=== PATIENT | male | born 1975 | race Caucasian/White ===

== ENCOUNTER 2016-07-09 19:50 | Emergency (ER) | payer MEDICAID ==
[~2016-07-09] VITALS: Ht 180.3 cm; Wt 93.0 kg
[2016-07-09] MEDS ORDERED: METO50TA5 PO (20:16)
[2016-07-09] MEDS ORDERED: HYDR25TA PO (20:17)
[2016-07-09] MEDS ORDERED: IBUPROFEN 600MG TABLET PO STA (21:08)
[2016-07-09 21:26] LABS: BASOPHILS % 0.3 % (0.0-2.0); EOSINOPHILS % 1.7 % (0.0-5.0); HEMATOCRIT. 43.8 % (42.0-52.0); HEMOGLOBIN. 14.6 g/dL (14.0-18.0); LYMPHOCYTES % 23.9 % (20.0-50.0); MEAN CORPUSCULAR HEMOGLOBIN 28.3 pg (28.0-32.0); MEAN CORPUSCULAR VOLUME 85.3 fL (80.0-94.0); MEAN PLATELET VOLUME 8.2 fl (7.4-10.4); MONOCYTES % 7.5 % (2.0-8.0); NEUTROPHILS % 66.6 % (40.0-76.0); PLATELET 248 x1000/uL (130-400); RED BLOOD CELL COUNT 5.13 mill/uL (4.7-6.1)
[2016-07-09 21:28] LABS: CHLORIDE 107 mEq/L (98-107)
[2016-07-09 21:37] LABS: CARBON DIOXIDE 25 mEq/L (21-32)
[2016-07-09] MEDS ORDERED: LORAZEPAM 0.5MG TABLET PO ONE (22:15)
[2016-07-09] MEDS ORDERED: HYDROCHLOROTHIAZIDE 25MG TABLET PO ONE (22:15)
[2016-07-09 22:19] VITALS: BP 153/93
== END 2016-07-09 22:48 | disposition home or self-care (01) ==
LOC: ER 19:50
DX: R07.89 Other chest pain (principal); I10 Essential (primary) hypertension; F17.200 Nicotine dependence, unspecified, uncomplicated
CPT/HCPCS: 36415; 71010; 80053; 85025; 93005; 99285; Z7610

== ENCOUNTER 2018-04-11 14:56 | Emergency (ER) | payer MEDICAID ==
[~2018-04-11] VITALS: Ht 177.8 cm; Wt 97.0 kg
[~2018-04-11 14:56] MED LIST: HYDR25TA PO; METO-539 PO
[2018-04-11 16:55] VITALS: BP 146/113
[2018-04-11] MEDS ORDERED: FOLIC ACID 1 MG, THIAMINE HCL 100 MG, MVI, ADULT NO.1 10 ML in DEXTROSE 5% WATER 1,000 ML IV ONE ×4 (17:15)
[2018-04-11] MEDS ORDERED: ENALAPRIL 2.5MG/2ML VIAL 2ML IV ONE (17:15)
[2018-04-11 17:31] LABS: BASOPHILS % 0.3 % (0.0-2.0); EOSINOPHILS % 0.7 % (0.0-5.0); HEMATOCRIT. 46.2 % (42.0-52.0); HEMOGLOBIN. 15.6 g/dL (14.0-18.0); LYMPHOCYTES % 14.5 % (20.0-50.0); MEAN CORPUSCULAR HEMOGLOBIN 28.8 pg (28.0-32.0); MEAN CORPUSCULAR VOLUME 85.5 fL (80.0-94.0); MEAN PLATELET VOLUME 7.6 fl (7.4-10.4); MONOCYTES % 7.5 % (2.0-8.0); PLATELET 318 x1000/uL (130-400); RED BLOOD CELL COUNT 5.41 mill/uL (4.7-6.1)
[2018-04-11 17:34] LABS: CLARITY URINE CLEAR (CLEAR); COLOR URINE YELLOW (YELLOW); KETONES URINE NEGATIVE (NEGATIVE); LEUKOCYTE ESTERASE URINE NEGATIVE (NEGATIVE); NITRITE URINE NEGATIVE (NEGATIVE); OCCULT BLOOD URINE NEGATIVE (NEGATIVE); PROTEIN URINE NEGATIVE (NEGATIVE); SPECIFIC GRAVITY URINE 1.014 (1.005-1.030); UROBILINOGEN URINE 0.2 E.U./dL (0.2-1.0)
[2018-04-11 17:46] LABS: CHLORIDE 104 mEq/L (98-107)
[2018-04-11 17:50] LABS: *BENZODIAZEPINES SCREEN URINE NEGATIVE (NEGATIVE); *COCAINE SCREEN URINE PRESUMTIVE POSITIVE (NEGATIVE)
[2018-04-11 17:51] LABS: ETHANOL BLOOD < 10 mg/dL
[2018-04-11 17:51] LABS: *AMPHETAMINES SCREEN URINE PRESUMTIVE POSITIVE (NEGATIVE)
[2018-04-11 17:53] LABS: METHADONE URINE SCREEN NEGATIVE (NEGATIVE); OPIATES URINE SCREEN NEGATIVE (NEGATIVE)
[2018-04-11 17:54] LABS: PHENCYCLIDINE URINE SCREEN NEGATIVE (NEGATIVE)
[2018-04-11 17:55] LABS: CANNABINOID URINE SCREEN NEGATIVE (NEGATIVE)
[2018-04-11 17:59] LABS: *BARBITURATES SCREEN URINE NEGATIVE (NEGATIVE)
== END 2018-04-11 18:51 | disposition home or self-care (01) ==
LOC: ER 14:56
DX: R51 Headache (principal); R00.2 Palpitations; I10 Essential (primary) hypertension; F15.10 Other stimulant abuse, uncomplicated; F17.200 Nicotine dependence, unspecified, uncomplicated; F14.10 Cocaine abuse, uncomplicated; Z87.440 Personal history of urinary (tract) infections; Z88.1 Allergy status to other antibiotic agents
CPT/HCPCS: 36415; 70450; 71045; 80053; 80305; 80320; 81003; 83735; 83880; 84443; 84484; 85025; 93005; 99284; J3411; J3490; J7070; G0480

== ENCOUNTER 2018-05-29 12:55 | Emergency (ER) | payer MEDICAID ==
[~2018-05-29] VITALS: Ht 177.8 cm; Wt 95.0 kg
[2018-05-29 16:15] VITALS: BP 146/91
== END 2018-05-29 16:23 | disposition home or self-care (01) ==
LOC: ER 13:14
DX: B35.6 Tinea cruris (principal); I10 Essential (primary) hypertension; F17.210 Nicotine dependence, cigarettes, uncomplicated; Z98.1 Arthrodesis status; Z88.1 Allergy status to other antibiotic agents
CPT/HCPCS: 82962; 99283

== ENCOUNTER 2019-06-25 19:51 | Inpatient (IN) | payer BC, MEDICAID ==
[~2019-06-25] VITALS: Ht 172.7 cm; Wt 96.8 kg
[2019-06-25 20:00] VITALS: BP 172/100
[2019-06-25] MEDS ORDERED: NITROGLYCERIN 0.4MG TABLET SL SL NR (20:45)
[2019-06-25] MEDS ORDERED: SODIUM CHLORIDE 0.9% 1,000 ML IV ONE (21:00)
[2019-06-25 21:13] LABS: BASOPHILS % 0.4 % (0.0-2.0); EOSINOPHILS % 2.5 % (0.0-5.0); HEMATOCRIT. 42.2 % (42.0-52.0); HEMOGLOBIN. 14.8 g/dL (14.0-18.0); LYMPHOCYTES % 17.4 % (20.0-50.0); MEAN CORPUSCULAR HEMOGLOBIN 29.6 pg (28.0-32.0); MEAN CORPUSCULAR VOLUME 84.2 fL (80.0-94.0); MEAN PLATELET VOLUME 8.4 fl (7.4-10.4); MONOCYTES % 7.8 % (2.0-8.0); NEUTROPHILS % 71.9 % (40.0-76.0); PLATELET 243 x1000/uL (130-400); RED BLOOD CELL COUNT 5.01 mill/uL (4.7-6.1)
[2019-06-25 21:19] LABS: CHLORIDE 103 mEq/L (98-107)
[2019-06-25] MEDS ORDERED: ACETAMINOPHEN 325MG TABLET PO ONE (22:00)
[2019-06-25] MEDS ORDERED: IOHEXOL-350 100 ML BOTTLE ONE (23:49)
[2019-06-26] MEDS ORDERED: LABETALOL 5MG/ML SYR 20 MG/4 ML SYRINGE IV ONE (00:15)
[2019-06-26 06:27] LABS: HEMATOCRIT. 39.6 % (42.0-52.0); HEMOGLOBIN. 13.6 g/dL (14.0-18.0); MEAN CORPUSCULAR HEMOGLOBIN 29.1 pg (28.0-32.0); MEAN CORPUSCULAR VOLUME 84.5 fL (80.0-94.0); MEAN PLATELET VOLUME 7.9 fl (7.4-10.4); PLATELET 204 x1000/uL (130-400); RED BLOOD CELL COUNT 4.69 mill/uL (4.7-6.1); RED CELL DISTRIBUTION WIDTH 13.2 % (11.6-14.6)
[2019-06-26] MEDS ORDERED: MORPHINE SULFATE 2 MG/ML CPJ (NOT FOR IM USE) IV SCH (06:30)
[2019-06-26 06:32] LABS: CHLORIDE 107 mEq/L (98-107)
[2019-06-26] MEDS ORDERED: ACETAMINOPHEN 325MG TABLET PO PRN ×2 (07:00)
[2019-06-26] MEDS ORDERED: ONDANSETRON HCL 4MG/2ML INJ IV PRN (07:00)
[2019-06-26] MEDS ORDERED: GUAIFENESIN 200MG/10ML SUGAR FREE UDC PO PRN (07:00)
[2019-06-26] MEDS ORDERED: ACETAMINOPHEN 650MG/20.3ML UDC GT PRN ×2 (07:00)
[2019-06-26] MEDS ORDERED: MAGNESIUM/ALUMINUM HYDROXIDE/SIMETHICONE 30ML UDC PO PRN (07:00)
[2019-06-26] MEDS ORDERED: DOCUSATE SODIUM 100MG CAPSULE PO PRN (07:00)
[2019-06-26] MEDS ORDERED: AMLODIPINE 10MG TABLET PO SCH ×2 (07:00→09:00)
[2019-06-26] MEDS ORDERED: ENOXAPARIN 40MG/0.4ML SYR SUBCUT SCH (07:30)
[2019-06-26 08:37] LABS: PLATELET ESTIMATE NORMAL
[2019-06-26] MEDS ORDERED: DEXTROSE 50% WATER 50ML SYRINGE IV PRN (08:45)
[2019-06-26] MEDS: BLOOD SUGAR DIAGNOSTIC STRIP TEST SCH ×3 (09:00→21:39)
[2019-06-26] MEDS ORDERED: METOPROLOL TARTRATE 25MG TABLET PO SCH (09:16)
[2019-06-26] MEDS: CLONIDINE 0.1MG TABLET PO PRN (12:22)
[2019-06-26] MEDS: INSULIN LISPRO 100 UNITS/ML SUBCUT SCH ×2 (14:09→21:45)
[2019-06-26 14:55] LABS: CREATINE KINASE 74 IU/L (39-308)
[2019-06-26 14:56] LABS: CREATINE KINASE MB FRACTION < 1.0 ng/mL (0.5-3.6)
[2019-06-26] MEDS ORDERED: CARVEDILOL 6.25 MG TABLET PO SCH ×2 (16:32→17:00)
[2019-06-26 20:00] VITALS: BP 172/100
[2019-06-26] MEDS ORDERED: ATORVASTATIN CALCIUM 40MG TABLET PO SCH (21:00)
[2019-06-26] MEDS: ENOXAPARIN 30MG/0.3ML SYR SUBCUT SCH (21:37)
[2019-06-26] MEDS: CARVEDILOL 6.25 MG TABLET PO SCH (21:47)
[2019-06-27] VITALS: BP 136/86
[2019-06-27 00:02] LABS: CREATINE KINASE 75 IU/L (39-308); CREATINE KINASE MB FRACTION < 1.0 ng/mL (0.5-3.6)
[2019-06-27 04:00] VITALS: BP 138/92
[2019-06-27] MEDS: CLONIDINE 0.1MG TABLET PO PRN (05:10)
[2019-06-27] MEDS: BLOOD SUGAR DIAGNOSTIC STRIP TEST SCH ×3 (06:30→17:23)
[2019-06-27] MEDS: INSULIN LISPRO 100 UNITS/ML SUBCUT SCH ×3 (06:33→17:26)
[2019-06-27 07:30] LABS: BASOPHILS % 0.6 % (0.0-2.0); EOSINOPHILS % 4.6 % (0.0-5.0); HEMOGLOBIN. 13.7 g/dL (14.0-18.0); LYMPHOCYTES % 22.9 % (20.0-50.0); MEAN CORPUSCULAR HEMOGLOBIN 28.9 pg (28.0-32.0); MEAN CORPUSCULAR VOLUME 84.6 fL (80.0-94.0); MEAN PLATELET VOLUME 8.6 fl (7.4-10.4); MONOCYTES % 8.6 % (2.0-8.0); NEUTROPHILS % 63.3 % (40.0-76.0); PLATELET 206 x1000/uL (130-400); RED BLOOD CELL COUNT 4.73 mill/uL (4.7-6.1); RED CELL DISTRIBUTION WIDTH 12.8 % (11.6-14.6)
[2019-06-27 07:45] LABS: CHLORIDE 107 mEq/L (98-107)
[2019-06-27 07:57] LABS: HDL CHOLESTEROL 38 mg/dL (40-59)
[2019-06-27 07:58] LABS: LDL CHOLESTEROL 115 mg/dL (5-100)
[2019-06-27 08:00] VITALS: BP 145/88
[2019-06-27] MEDS ORDERED: REGADENOSON 0.4 MG/5 ML IV ONE ×2 (08:00→12:12)
[2019-06-27] MEDS ORDERED: AMLODIPINE 10MG TABLET PO SCH (09:00)
[2019-06-27] MEDS ORDERED: ASPIRIN 81MG TABLET PO SCH (09:00)
[2019-06-27] MEDS: CARVEDILOL 6.25 MG TABLET PO SCH (10:30)
[2019-06-27] MEDS: ENOXAPARIN 30MG/0.3ML SYR SUBCUT SCH (10:31)
[2019-06-27] MEDS ORDERED: COR6 PO (12:28)
[2019-06-27] MEDS ORDERED: LIP40 PO (12:28)
[2019-06-27] MEDS ORDERED: AMLO10TA80 PO (12:28)
[2019-06-27 16:00] VITALS: BP 136/88
[2019-06-27 20:00] VITALS: BP 150/89
== END 2019-06-27 20:55 | disposition home or self-care (01) | DRG 313 ==
LOC: ER 19:51 → 5WST 23:48 → ENRESERV 06-26 17:06
PROVIDERS: ADMIT Family Medicine; ATTEND Family Medicine
DX: R07.89 Other chest pain (principal); D64.9 Anemia, unspecified; E11.9 Type 2 diabetes mellitus without complications; E78.5 Hyperlipidemia, unspecified; F17.200 Nicotine dependence, unspecified, uncomplicated; I10 Essential (primary) hypertension; I25.9 Chronic ischemic heart disease, unspecified; E66.9 Obesity, unspecified; Z88.1 Allergy status to other antibiotic agents; Z79.899 Other long term (current) drug therapy; Z82.49 Family history of ischemic heart disease and other diseases of the circulatory system; Z72.89 Other problems related to lifestyle; Z71.6 Tobacco abuse counseling; Z68.32 Body mass index [BMI] 32.0-32.9, adult; Z87.440 Personal history of urinary (tract) infections
CPT/HCPCS: 36415; 71045; 71275; 78452; 80048; 80053; 80061; 82550; 82553; 82962; 83036; 83880; 84443; 84484; 85025; 93005; 93017; 93306; 99285; 99406; A9500; J1650; J1815; J2270; J2785; J3490; J7030; Q9967

== ENCOUNTER 2020-08-06 00:25 | Inpatient (IN) | payer BC, OTHER ==
[~2020-08-06] VITALS: Ht 180.3 cm; Wt 91.6 kg
[~2020-08-06 00:25] MED LIST changes: +AMLO10TA80 PO; +COR6 PO; -HYDR25TA PO; +LIP40 PO; -METO-539 PO
[2020-08-06 03:05] LABS: CLARITY URINE CLEAR (CLEAR); COLOR URINE YELLOW (YELLOW); KETONES URINE NEGATIVE (NEGATIVE); LEUKOCYTE ESTERASE URINE NEGATIVE (NEGATIVE); NITRITE URINE NEGATIVE (NEGATIVE); OCCULT BLOOD URINE NEGATIVE (NEGATIVE); PROTEIN URINE NEGATIVE (NEGATIVE); SPECIFIC GRAVITY URINE 1.015 (1.005-1.030); UROBILINOGEN URINE 0.2 E.U./dL (0.2-1.0)
[2020-08-06] MEDS ORDERED: ASPIRIN 81MG TABLET PO ONE (03:30)
[2020-08-06] MEDS ORDERED: NITROGLYCERIN OINT 1GM/INCH UDPKT TD ONE (03:30)
[2020-08-06 03:34] LABS: BASOPHILS % 0.3 % (0.0-2.0); EOSINOPHILS % 0.8 % (0.0-5.0); HEMATOCRIT. 41.9 % (42.0-52.0); HEMOGLOBIN. 14.1 g/dL (14.0-18.0); LYMPHOCYTES % 23.1 % (20.0-50.0); MEAN CORPUSCULAR VOLUME 86.3 fL (80.0-94.0); MEAN PLATELET VOLUME 8.1 fl (7.4-10.4); MONOCYTES % 8.1 % (2.0-8.0); NEUTROPHILS % 67.7 % (40.0-76.0); PLATELET 272 x1000/uL (130-400); RED BLOOD CELL COUNT 4.85 mill/uL (4.7-6.1); RED CELL DISTRIBUTION WIDTH 13.9 % (11.6-14.6)
[2020-08-06 03:41] LABS: CHLORIDE 102 mEq/L (98-107)
[2020-08-06] MEDS ORDERED: LORAZEPAM 2MG/ML CPJ IV PRN (07:30)
[2020-08-06] MEDS ORDERED: NA PHOS,M-B/NA PHOS,DI-BA ENEMA 118ML PR PRN (07:30)
[2020-08-06] MEDS ORDERED: MAGNESIUM/ALUMINUM HYDROXIDE/SIMETHICONE 30ML UDC PO PRN (07:30)
[2020-08-06] MEDS ORDERED: ACETAMINOPHEN 325MG TABLET PO PRN (07:30)
[2020-08-06] MEDS ORDERED: GUAIFENESIN 200MG/10ML SUGAR FREE UDC PO PRN (07:30)
[2020-08-06] MEDS ORDERED: CLONIDINE 0.1MG TABLET PO PRN (07:30)
[2020-08-06] MEDS ORDERED: ONDANSETRON HCL 4MG/2ML INJ IV PRN (07:30)
[2020-08-06] MEDS ORDERED: IPRATROPIUM/ALBUTEROL 0.5-3(2.5)MG/3ML NEB NEB PRN (07:30)
[2020-08-06] MEDS ORDERED: MORPHINE SULFATE 2 MG/ML CPJ (NOT FOR IM USE) IV PRN (07:30)
[2020-08-06] MEDS ORDERED: DIPHENHYDRAMINE 50MG/ML VIAL IV PRN (07:30)
[2020-08-06] MEDS: HYDROCODONE/ACETAMINOPHEN 5/325MG TABLET PO PRN (07:59)
[2020-08-06] MEDS: ENOXAPARIN 40MG/0.4ML SYR SUBCUT SCH ×2 (08:01→09:00)
[2020-08-06 09:00] LABS: CHLORIDE 103 mEq/L (98-107)
[2020-08-06] MEDS ORDERED: DOCUSATE SODIUM 100MG CAPSULE PO PRN (09:00)
[2020-08-06] MEDS: ASPIRIN 81MG EC TABLET PO SCH (09:08)
[2020-08-06] MEDS ORDERED: REGADENOSON 0.4 MG/5 ML IV NR (10:15)
[2020-08-06 15:37] LABS: CREATINE KINASE 105 IU/L (39-308)
[2020-08-06 15:38] LABS: CREATINE KINASE MB FRACTION 1.1 ng/mL (0.5-3.6)
[2020-08-06 16:00] VITALS: BP 133/94
[2020-08-06 16:30] VITALS: BP 133/94
[2020-08-06] MEDS ORDERED: SITA1TAB6 MT (16:56)
[2020-08-06] MEDS ORDERED: HYDR12.54 MT (16:56)
[2020-08-06] MEDS ORDERED: LOSA25TA26 MT (16:56)
[2020-08-06] MEDS ORDERED: POTASSIUM CHLORIDE 20MEQ TABLET SR PO NR (17:15)
[2020-08-06 20:00] VITALS: BP 129/93
[2020-08-06 23:58] LABS: CREATINE KINASE 90 IU/L (39-308)
[2020-08-06 23:59] LABS: CREATINE KINASE MB FRACTION < 1.0 ng/mL (0.5-3.6)
[2020-08-07] VITALS: BP 123/86
[2020-08-07 04:00] VITALS: BP 121/92
[2020-08-07 07:02] LABS: BASOPHILS % 0.1 % (0.0-2.0); EOSINOPHILS % 1.2 % (0.0-5.0); HEMATOCRIT. 40.9 % (42.0-52.0); HEMOGLOBIN. 13.9 g/dL (14.0-18.0); LYMPHOCYTES % 24.5 % (20.0-50.0); MEAN CORPUSCULAR HEMOGLOBIN 29.1 pg (28.0-32.0); MEAN CORPUSCULAR VOLUME 85.4 fL (80.0-94.0); MEAN PLATELET VOLUME 8.5 fl (7.4-10.4); MONOCYTES % 7.3 % (2.0-8.0); NEUTROPHILS % 66.9 % (40.0-76.0); PLATELET 237 x1000/uL (130-400); RED BLOOD CELL COUNT 4.79 mill/uL (4.7-6.1); RED CELL DISTRIBUTION WIDTH 13.6 % (11.6-14.6)
[2020-08-07 07:12] LABS: CHLORIDE 105 mEq/L (98-107)
[2020-08-07 07:28] LABS: LDL CHOLESTEROL 77 mg/dL (5-100)
[2020-08-07 07:29] LABS: CREATINE KINASE 74 IU/L (39-308); CREATINE KINASE MB FRACTION 1.4 ng/mL (0.5-3.6); HDL CHOLESTEROL 57 mg/dL (40-59)
[2020-08-07 07:31] LABS: T4 FREE 1.04 ng/dL (0.76-1.46)
[2020-08-07 08:00] VITALS: BP 141/109
[2020-08-07] MEDS: AMLODIPINE 10MG TABLET PO SCH (09:14)
[2020-08-07] MEDS: ASPIRIN 81MG EC TABLET PO SCH (09:14)
[2020-08-07] MEDS: ENOXAPARIN 40MG/0.4ML SYR SUBCUT SCH (09:14)
[2020-08-07 12:00] VITALS: BP 142/92
[2020-08-07] MEDS ORDERED: REGADENOSON 0.4 MG/5 ML IV NR (14:15)
[2020-08-07] MEDS: CARVEDILOL 6.25 MG TABLET PO SCH ×2 (14:37→20:52)
[2020-08-07 16:00] VITALS: BP 122/86
[2020-08-07 20:00] VITALS: BP 120/91
[2020-08-07] MEDS: HYDROCODONE/ACETAMINOPHEN 5/325MG TABLET PO PRN (20:50)
[2020-08-08] VITALS: BP 131/91
[2020-08-08 04:00] VITALS: BP 117/86
[2020-08-08 08:00] VITALS: BP 129/87
[2020-08-08] MEDS: CARVEDILOL 6.25 MG TABLET PO SCH (09:00)
[2020-08-08] MEDS: ASPIRIN 81MG EC TABLET PO SCH (09:00)
[2020-08-08] MEDS: AMLODIPINE 10MG TABLET PO SCH (09:00)
[2020-08-08] MEDS ORDERED: REGADENOSON 0.4 MG/5 ML IV ONE (09:32)
[2020-08-08] MEDS: ENOXAPARIN 40MG/0.4ML SYR SUBCUT SCH (10:41)
[2020-08-08 11:22] VITALS: BP 129/87
== END 2020-08-08 12:00 | disposition home or self-care (01) | DRG 313 ==
LOC: ER 03:23 → EDBEDREQ 04:51 → EDBEDREQTM 04:51 → ENRESERV 15:42 → 5WST 16:46
PROVIDERS: ADMIT Internal Medicine; ATTEND Internal Medicine
DX: R07.9 Chest pain, unspecified (principal); I10 Essential (primary) hypertension; H61.21 Impacted cerumen, right ear; F41.9 Anxiety disorder, unspecified; Z79.84 Long term (current) use of oral hypoglycemic drugs; Z87.891 Personal history of nicotine dependence; Z79.899 Other long term (current) drug therapy; Z88.1 Allergy status to other antibiotic agents
CPT/HCPCS: 36415; 71045; 78452; 80048; 80053; 80061; 81003; 82550; 82553; 83036; 83880; 84439; 84443; 84484; 85025; 85379; 93005; 93306; 99285; A9500; J1650; J2785

== ENCOUNTER 2021-04-12 11:56 | Emergency (ER) | payer OTHER ==
[~2021-04-12] VITALS: Ht 175.3 cm; Wt 100.0 kg
[~2021-04-12 11:56] MED LIST changes: +HYDR12.54 MT; +LOSA25TA26 MT; +SITA1TAB6 MT
[2021-04-12] MEDS ORDERED: KETOROLAC 30MG/ML VIAL IV STA (12:07)
[2021-04-12] MEDS ORDERED: SODIUM CHLORIDE 0.9% 1,000 ML IV ONE (12:15)
[2021-04-12 12:33] LABS: BASOPHILS % 0.2 % (0.0-2.0); HEMATOCRIT. 42.7 % (42.0-52.0); HEMOGLOBIN. 14.6 g/dL (14.0-18.0); LYMPHOCYTES % 9.8 % (20.0-50.0); MEAN CORPUSCULAR VOLUME 81.7 fL (80.0-94.0); MEAN PLATELET VOLUME 8.4 fl (7.4-10.4); MONOCYTES % 7.5 % (2.0-8.0); NEUTROPHILS % 80.5 % (40.0-76.0); PLATELET 255 x1000/uL (130-400); RED BLOOD CELL COUNT 5.22 mill/uL (4.7-6.1); RED CELL DISTRIBUTION WIDTH 14.5 % (11.6-14.6)
[2021-04-12 12:37] LABS: CHLORIDE 101 mEq/L (98-107)
[2021-04-12 14:04] LABS: CLARITY URINE CLEAR (CLEAR); COLOR URINE DARK YELLOW (YELLOW); KETONES URINE TRACE (NEGATIVE); LEUKOCYTE ESTERASE URINE NEGATIVE (NEGATIVE); NITRITE URINE NEGATIVE (NEGATIVE); OCCULT BLOOD URINE NEGATIVE (NEGATIVE); PH URINE 5.5 (4.5-8.0); PROTEIN URINE NEGATIVE (NEGATIVE); SPECIFIC GRAVITY URINE 1.031 (1.005-1.030)
[2021-04-12 15:11] VITALS: BP 127/90
[2021-04-12] MEDS ORDERED: ONDA4TAB11 PO (15:48)
[2021-04-12] MEDS ORDERED: IBUP-2030 MT (15:48)
[2021-04-12] MEDS ORDERED: LOPE2TAB26 MT (15:48)
== END 2021-04-12 16:09 | disposition home or self-care (01) ==
LOC: ER 11:56
DX: R10.9 Unspecified abdominal pain (principal); I10 Essential (primary) hypertension; R19.7 Diarrhea, unspecified; F41.9 Anxiety disorder, unspecified; E78.00 Pure hypercholesterolemia, unspecified; Z98.890 Other specified postprocedural states; Z79.899 Other long term (current) drug therapy; Z20.822 Contact with and (suspected) exposure to COVID-19
CPT/HCPCS: 36415; 71045; 74176; 80053; 81003; 83690; 85025; 87426; 93005; 96361; 96374; 99285; J1885; J7030; Z7610; 96360

== ENCOUNTER 2021-04-27 19:41 | Emergency (ER) | payer OTHER ==
[~2021-04-27] VITALS: Ht 177.8 cm; Wt 97.0 kg
[~2021-04-27 19:41] MED LIST changes: +IBUP-2030 MT; +LOPE2TAB26 MT; +ONDA4TAB11 PO
[2021-04-27 19:44] VITALS: BP 160/104
== END 2021-04-28 07:08 | disposition left against medical advice (07) ==
LOC: ER 19:41
DX: Z53.21 Procedure and treatment not carried out due to patient leaving prior to being seen by health care provider (principal)

== ENCOUNTER 2021-12-23 20:37 | Emergency (ER) | payer OTHER ==
[~2021-12-23] VITALS: Ht 177.8 cm; Wt 91.3 kg
[2021-12-23 20:43] VITALS: BP 167/133
== END 2021-12-24 01:27 | disposition left against medical advice (07) ==
LOC: ER 20:37
DX: Z53.21 Procedure and treatment not carried out due to patient leaving prior to being seen by health care provider (principal)
CPT/HCPCS: 93005

== ENCOUNTER 2022-04-14 19:49 | Emergency (ER) | payer OTHER ==
[~2022-04-14] VITALS: Ht 177.8 cm; Wt 93.7 kg
[2022-04-14 20:01] VITALS: BP 169/113
[2022-04-14] MEDS ORDERED: NITROGLYCERIN 0.4MG TABLET SL SL PRN (20:15)
[2022-04-14] MEDS ORDERED: ASPIRIN 81MG TABLET PO ONE (20:15)
[2022-04-14 22:03] LABS: BASOPHILS % 0.4 % (0.0-2.0); EOSINOPHILS % 1.9 % (0.0-5.0); HEMATOCRIT. 43.9 % (42.0-52.0); HEMOGLOBIN. 14.7 g/dL (14.0-18.0); LYMPHOCYTES % 18.7 % (20.0-50.0); MEAN CORPUSCULAR HEMOGLOBIN 28.2 pg (28.0-32.0); MEAN CORPUSCULAR VOLUME 84.4 fL (80.0-94.0); MEAN PLATELET VOLUME 8.5 fl (7.4-10.4); MONOCYTES % 9.2 % (2.0-8.0); NEUTROPHILS % 69.8 % (40.0-76.0); PLATELET 264 x1000/uL (130-400); RED BLOOD CELL COUNT 5.19 mill/uL (4.7-6.1); RED CELL DISTRIBUTION WIDTH 13.5 % (11.6-14.6)
[2022-04-14 22:13] LABS: CHLORIDE 107 mEq/L (98-107)
[2022-04-14 22:22] LABS: ETHANOL BLOOD < 10 mg/dL
== END 2022-04-15 01:07 | disposition home or self-care (01) ==
LOC: ER 19:49
DX: R07.89 Other chest pain (principal); E11.9 Type 2 diabetes mellitus without complications; I10 Essential (primary) hypertension; F17.200 Nicotine dependence, unspecified, uncomplicated; Z79.899 Other long term (current) drug therapy
CPT/HCPCS: 36415; 71045; 80053; 80320; 83880; 84484; 85025; 93005; 99285; G0480

== ENCOUNTER 2023-03-21 14:07 | Emergency (ER) | payer SELFPAY ==
[~2023-03-21] VITALS: Ht 182.9 cm; Wt 102.0 kg
[2023-03-21 14:13] VITALS: BP 169/117; PULSE 119; RESP 20; TEMP 98.1; O2SAT 97
[2023-03-21 15:13] LABS: BASOPHILS % 0.4 % (0.0-2.0); EOSINOPHILS % 3.3 % (0.0-5.0); HEMATOCRIT. 42.1 % (42.0-52.0); HEMOGLOBIN. 14.3 g/dL (14.0-18.0); LYMPHOCYTES % 20.8 % (20.0-50.0); MEAN CORPUSCULAR HEMOGLOBIN 28.9 pg (28.0-32.0); MEAN CORPUSCULAR HGB CONC 34.1 g/dL (31.0-37.0); MEAN CORPUSCULAR VOLUME 84.9 fL (80.0-94.0); MEAN PLATELET VOLUME 8.5 fl (7.4-10.4); MONOCYTES % 6.1 % (2.0-8.0); NEUTROPHILS % 69.4 % (40.0-76.0); PLATELET 278 x1000/uL (130-400); RED BLOOD CELL COUNT 4.95 mill/uL (4.7-6.1); RED CELL DISTRIBUTION WIDTH 13.8 % (11.6-14.6); WHITE BLOOD COUNT 7.9 x1000/uL (4.5-11.0)
[2023-03-21 15:27] LABS: ALANINE AMINOTRANSFERASE 36 IU/L (10-49); ALBUMIN 4.4 g/dL (3.2-4.8); ASPARTATE AMINOTRANSFERASE 21 IU/L (<34); BILIRUBIN TOTAL 0.4 mg/dL (0.1-1.0); CALCIUM 9.5 mg/dL (8.7-10.4); CARBON DIOXIDE 28 mEq/L (21-32); CHLORIDE 102 mEq/L (98-107); CREATININE 0.8 mg/dL (0.6-1.3); GLUCOSE 131 mg/dL (70-105); POTASSIUM 3.9 mEq/L (3.5-5.1); PROTEIN TOTAL 6.5 g/dL (6.0-8.3); SODIUM 138 mEq/L (136-145); UREA NITROGEN BLOOD 15 mg/dL (9-23)
[2023-03-21 16:58] LABS: CLARITY URINE CLEAR (CLEAR); COLOR URINE YELLOW (YELLOW); GLUCOSE URINE NEGATIVE (NEGATIVE); KETONES URINE NEGATIVE (NEGATIVE); LEUKOCYTE ESTERASE URINE NEGATIVE (NEGATIVE); NITRITE URINE NEGATIVE (NEGATIVE); OCCULT BLOOD URINE NEGATIVE (NEGATIVE); PH URINE 8.5 (4.5-8.0); PROTEIN URINE NEGATIVE (NEGATIVE); SPECIFIC GRAVITY URINE 1.015 (1.005-1.030)
[2023-03-21 17:53] LABS: TROPONIN I HIGH SENSITIVITY < 4 ng/L (3.0-53)
[2023-03-21] MEDS ORDERED: ASPIRIN 325MG EC TABLET PO ONE (20:45)
[2023-03-21] MEDS ORDERED: ACETAMINOPHEN 500MG TABLET PO ONE (20:45)
== END 2023-03-21 23:18 | disposition left against medical advice (07) ==
LOC: ER 14:07
DX: R07.9 Chest pain, unspecified (principal); E11.9 Type 2 diabetes mellitus without complications; I10 Essential (primary) hypertension; F10.10 Alcohol abuse, uncomplicated; Y90.8 Blood alcohol level of 240 mg/100 ml or more; Z98.890 Other specified postprocedural states
CPT/HCPCS: 36415; 71045; 80053; 81003; 84484; 85025; 93005; 99285

== ENCOUNTER 2023-05-11 12:59 | Emergency (ER) | payer SELFPAY ==
[~2023-05-11] VITALS: Ht 177.8 cm; Wt 98.4 kg
[2023-05-11 13:17] VITALS: O2SAT 98
[2023-05-11 14:54] LABS: BASOPHILS % 0.5 % (0.0-2.0); EOSINOPHILS % 3.5 % (0.0-5.0); HEMATOCRIT. 44.5 % (42.0-52.0); HEMOGLOBIN. 15.2 g/dL (14.0-18.0); LYMPHOCYTES % 18.3 % (20.0-50.0); MEAN CORPUSCULAR HEMOGLOBIN 28.9 pg (28.0-32.0); MEAN CORPUSCULAR HGB CONC 34.2 g/dL (31.0-37.0); MEAN CORPUSCULAR VOLUME 84.5 fL (80.0-94.0); MEAN PLATELET VOLUME 8.5 fl (7.4-10.4); MONOCYTES % 7.2 % (2.0-8.0); NEUTROPHILS % 70.5 % (40.0-76.0); PLATELET 275 x1000/uL (130-400); RED BLOOD CELL COUNT 5.27 mill/uL (4.7-6.1); RED CELL DISTRIBUTION WIDTH 13.3 % (11.6-14.6); WHITE BLOOD COUNT 9.4 x1000/uL (4.5-11.0)
[2023-05-11 15:08] LABS: ALANINE AMINOTRANSFERASE 40 IU/L (10-49); ASPARTATE AMINOTRANSFERASE 23 IU/L (<34); BILIRUBIN TOTAL 0.5 mg/dL (0.1-1.0); CALCIUM 9.7 mg/dL (8.7-10.4); CARBON DIOXIDE 27 mEq/L (21-32); CHLORIDE 103 mEq/L (98-107); CREATININE 0.9 mg/dL (0.6-1.3); GLUCOSE 174 mg/dL (70-105); POTASSIUM 3.9 mEq/L (3.5-5.1); PROTEIN TOTAL 7.6 g/dL (6.0-8.3); SODIUM 139 mEq/L (136-145); UREA NITROGEN BLOOD 15 mg/dL (9-23)
[2023-05-11] MEDS: KETOROLAC 30MG/ML VIAL IV ONE (23:12)
[2023-05-12] MEDS ORDERED: IOHEXOL-300 100 ML BOTTLE ONE (00:06)
[2023-05-12] MEDS ORDERED: POLY17PO3 MT (01:34)
[2023-05-12 02:23] VITALS: BP 132/94; PULSE 84; RESP 16; TEMP 98.3
== END 2023-05-12 02:26 | disposition home or self-care (01) ==
LOC: ER 13:09
DX: R10.9 Unspecified abdominal pain (principal); K59.00 Constipation, unspecified; E11.9 Type 2 diabetes mellitus without complications; I10 Essential (primary) hypertension; F10.20 Alcohol dependence, uncomplicated; Z88.8 Allergy status to other drugs, medicaments and biological substances; Z98.890 Other specified postprocedural states; Z88.2 Allergy status to sulfonamides; Y90.9 Presence of alcohol in blood, level not specified
CPT/HCPCS: 99285; 74177; 96374; 80053; 83690; 85025; 36415; J1885; Q9967